=== PATIENT | male | born 1940 | race Caucasian/White ===

== ENCOUNTER 2022-10-05 07:01 | Day surgery (SDC) | payer MEDICARE, BC ==
[~2022-10-05 07:01] MED LIST: Acetaminophen 500 MG Tab PO ONE; Bacitracin Oint 1 GM U/D Packet ONE; Bupivacaine 0.5% 50 ML MDV ONE; Lidocaine 1% with EPINEPHrine 1:100,000 50 ML MDV ONE; Propofol 200 MG/20 ML SDV ONE; fentaNYL 50 MCG/ML SDV ONE
[2022-10-05] MEDS ORDERED: Lactated Ringers 1,000 ML IV SCH (07:30)
[2022-10-05] MEDS ORDERED: ceFAZolin 2 GM in Premix Bag 1 BAG IV ONE (08:00)
[2022-10-05 11:03] VITALS: BP 150/73; PULSE 56
== END 2022-10-05 11:15 | disposition home or self-care (01) ==
LOC: JP.SDS 07:01
PROVIDERS: ATTEND Student in an Organized Health Care Education/Training Program
DX: C43.62 Malignant melanoma of left upper limb, including shoulder (principal); I10 Essential (primary) hypertension; E11.9 Type 2 diabetes mellitus without complications; M17.9 Osteoarthritis of knee, unspecified; G20 Parkinson's disease; I48.91 Unspecified atrial fibrillation; Z79.899 Other long term (current) drug therapy; Z79.82 Long term (current) use of aspirin; Z87.891 Personal history of nicotine dependence; Z90.49 Acquired absence of other specified parts of digestive tract; Z86.73 Personal history of transient ischemic attack (TIA), and cerebral infarction without residual deficits
CPT/HCPCS: 11602; 12032; 88305; A9270; J0690; J2704; J3010; J3490; J7120

== ENCOUNTER 2024-01-18 06:29 | Day surgery (SDC) | payer MEDICARE, BC ==
[2024-01-18] MEDS: Sodium Chloride 0.9% 1,000 ML IV SCH (06:53)
[2024-01-18 07:00] LABS: HEMATOCRIT 38.2 % (38.4-49.7); HEMOGLOBIN 13.3 g/dL (12.9-16.9); MEAN CORPUSCULAR HEMOGLOBIN 31.7 pg (31.6-35.5); MEAN CORPUSCULAR HGB CONC 34.8 g/dL (31.6-35.5); RED BLOOD CELL COUNT 4.2 M/uL (4.14-5.76); WHITE BLOOD CELL COUNT,WBC 7.8 K/uL (3.2-11.0)
[2024-01-18 07:21] LABS: A/G RATIO 1.2 (1.2-2.2); ALANINE AMINOTRANSFERASE,ALT 9 U/L (12-78); ALBUMIN 3.8 g/dL (3.4-5.0); ALKALINE PHOSPHATASE 105 U/L (46-116); ASPARTATE AMNIOTRANSFERASE,AST 14 U/L (15-37); BILIRUBIN TOTAL 1.4 mg/dL (0.2-1.0); BLOOD UREA NITROGEN,BUN 18 mg/dL (7-18); CALCIUM 8.9 mg/dL (8.5-10.1); CARBON DIOXIDE,CO2 27 mmol/L (21-32); CHLORIDE,CL 98 mmol/L (100-108); CREATININE 1.2 mg/dL (0.8-1.3); EST CRCL DRUG DOSING (CG) 43.59 mL/min; ESTIMATED GFR 60 mL/min (>60); GLUCOSE RANDOM 161 mg/dL (74-106); SODIUM,NA 134 mmol/L (140-148)
[2024-01-18] MEDS ORDERED: fentaNYL 250 MCG/5 ML SDV ONE (07:25)
[2024-01-18] MEDS ORDERED: Succinylcholine 200 MG/10 ML MDV ONE (07:26)
[2024-01-18] MEDS ORDERED: Rocuronium 50 MG/5 ML Vial ONE (07:26)
[2024-01-18] MEDS ORDERED: Propofol 200 MG/20 ML SDV ONE (07:26)
[2024-01-18] MEDS ORDERED: Glycopyrrolate 0.2 MG/ML 5 ML MDV ONE (07:26)
[2024-01-18] MEDS ORDERED: Neostigmine Methylsulfate 10 MG/10 ML MDV ONE (07:26)
[2024-01-18] MEDS ORDERED: Ondansetron 4 MG/2 ML SDV ONE (07:26)
[2024-01-18] MEDS ORDERED: Dexamethasone 4 MG/ML SDV ONE (07:26)
[2024-01-18] MEDS ORDERED: ceFAZolin 2 GM in Premix Bag 1 BAG IV SCH (07:30)
[2024-01-18] MEDS: metroNIDAZOLE/Normal Saline 500 MG in Premix Bag 1 BAG IV ONE (07:41)
[2024-01-18] MEDS: ceFAZolin 2 GM in Premix Bag 1 BAG IV ONE (08:30)
[2024-01-18] MEDS: Bupivacaine 0.5%/EPINEPHrine 1:200,000 50 ML MDV ONE (08:30)
[2024-01-18] MEDS: Ropivacaine 35 ML, dexAMETHasone 8 MG, EPINEPHrine 0.4 MG, Sodium Chloride 0.9% 42.6 ML NERVRT SCH (08:35)
[2024-01-18] MEDS ORDERED: ePHEDrine 50 MG/ML SDV ONE (08:39)
[2024-01-18] MEDS ORDERED: Sugammadex Sodium 200 MG/2 ML VIAL IV ONE (09:35)
[2024-01-18] MEDS ORDERED: Labetalol 20 MG/4 ML Syringe ONE (09:40)
[2024-01-18] MEDS ORDERED: Lactated Ringers 1,000 ML ONE (09:51)
[2024-01-18] MEDS: Acetaminophen/HYDROcodone 325-5 MG Tab PO ONE (12:44)
[2024-01-18 14:42] VITALS: BP 144/66; PULSE 45
== END 2024-01-18 14:00 | disposition home or self-care (01) ==
LOC: JP.SDS 06:29
PROVIDERS: ATTEND Surgery
DX: K40.31 Unilateral inguinal hernia, with obstruction, without gangrene, recurrent (principal); E11.9 Type 2 diabetes mellitus without complications; E78.00 Pure hypercholesterolemia, unspecified; G20.A1 Parkinson's disease without dyskinesia, without mention of fluctuations; K21.9 Gastro-esophageal reflux disease without esophagitis; Z87.891 Personal history of nicotine dependence
CPT/HCPCS: 36415; 49651; 80053; 85027; A9270; C1781; J0171; J0330; J0690; J1100; J1596; J1836; J1920; J2405; J2704; J2710; J2795; J3010; J3490; J7030; J7120